=== PATIENT | female | born 1980 | race Caucasian/White ===

== ENCOUNTER 2017-03-17 16:50 | Emergency (ER) | payer SELFPAY ==
[~2017-03-17] VITALS: Ht 172.7 cm; Wt 70.0 kg
[~2017-03-17 16:50] MED LIST: ALPRAZOLAM0.5 M2 PO; AMBIEN10 MG OR; AMOXICILLIN500 MG OR; ATIVAN0.5 MG OR; ATIVAN1 M1; CARBAMAZEPIN200 M1 PO; CEPHALEXIN500 MG PO; CIPRO500 MG OR; CORTISPORIN OTI10 ML AS; DARVOCET N-100100 - OR; DEPAKOTE500 MG OR; FLAGYL500 MG OR; KLONOPIN0.5 MG OR; LEVAQUIN500 MG OR; LEVOTHROID25 MC1 OR; LEXAPRO5 MG OR; LITHIUM CARB300 MG; LORTAB 5 OR; LORTAB/VICOD5 MG/TAB; MOTRIN800 MG OR; NAPROSYN500 MG OR; NORCO1 TA1 PO; PREMARIN1.25 MG PO; PROMETHAZINE HC25 MG PO; REGLAN10 MG OR; TEGRETOL200 MG PO; TYLENOL500 MG OR; ULTRAM50 M1 PO; ULTRAM50 MG OR; XANAX0.25 MG
[2017-03-17 18:32] LABS: HEMATOCRIT 35.9 % (37.0-47.0); HEMOGLOBIN 12.4 g/dl (12.0-16.0); IMMATURE GRANULOCYTES 0.4 % (0.0-1.0); MEAN CORPUSCULAR HGB 32.8 pG CALC (26.0-32.0); MEAN CORPUSCULAR HGB CONC 34.5 g/L CALC (32.0-36.0); NEUT# 8.35 thou/uL (2.00-7.15); RED BLOOD COUNT 3.78 mill/uL (4.20-5.60); RED CELL DISTRI WIDTH 12.5 % (11.5-15.5)
[2017-03-17 19:23] LABS: ALBUMIN 3.3 g/dL (3.2-5.0); ALKALINE PHOSPHATASE 76 u/l (38-126); AMYLASE 30 u/l (30-110); ANION GAP 11 (6-22 (CALC)); BILIRUBIN, TOTAL 0.6 mg/dL (0.0-1.4); BUN 6 mg/dL (7-17); BUN/CREATININE RATIO 10 (12-20 (CALC)); CALCIUM 8.8 mg/dL (8.4-10.2); CARBON DIOXIDE 24 mmol/l (22-30); CHLORIDE 106 mmol/l (95-108); CREATININE 0.6 mg/dL (0.5-1.0); GFR > 60 ML/MIN (>=60 (CALC)); GFR FOR AFR.AMER. > 60 ML/MIN (>=60 (CALC)); GLUCOSE 100 mg/dL (65-105); LIPASE 42 u/l (23-300); SGOT/AST 18 u/l (14-36); SGPT/ALT 44 u/l (9-52); SODIUM 137 mmol/l (137-146); TOTAL PROTEIN 5.9 g/dL (6.3-8.2)
[2017-03-17 20:14] VITALS: BP 140/70
== END 2017-03-17 21:07 | disposition left against medical advice (07) | DRG 392 ==
LOC: ED 16:50
PROVIDERS: Emergency Medicine
DX: R10.13 Epigastric pain (principal); R18.8 Other ascites; Z91.19 Patient's noncompliance with other medical treatment and regimen; K52.9 Noninfective gastroenteritis and colitis, unspecified
CPT/HCPCS: S0164